=== PATIENT | male | born 1985 | race Caucasian/White ===

== ENCOUNTER 2019-08-19 18:50 | Observation (INO) ==
[2019-08-19] MEDS ORDERED: SOLU-MEDROL IV ONE (19:24)
--- NOTE | 2019-08-19 19:39 | Diag Imaging Result Doc PS360 ---
EXAM: CHEST-2 VIEWS 08/19/2019 HISTORY: cough TECHNIQUE: PA and lateral chest COMMENT: There are no previous studies. There is no evidence of acute cardiac or pulmonary disease. IMPRESSION: No acute disease. Electronically signed by Manpreet Cuellar 08/19/2019 7:35 PM
[2019-08-19 20:26] LABS: BASO# 0.02 X1000 (0.0-0.2); BASO% 0.3 % (0.0-0.8); HEMATOCRIT 43.1 % (42.0-52.0); HEMOGLOBIN 14.3 g/dL (14.0-18.0); LYMPH# 0.45 X1000 (1.2-3.4); LYMPH% 6.1 % (20.5-51.1); MCH 29.4 PG (27-31); MCHC 33.2 g/dL (33-37); MCV 88.7 FL (81-99); MONO# 0.55 X1000 (0.11-0.59); MONO% 7.5 % (1.7-9.3); MPV 10.8 FL (7.4-10.4); NEUT# 6.34 X1000 (1.4-6.5); NEUT% 86.1 % (42.2-75.2); PLT 164 X1000 (130-400); RBC 4.86 XMIL (4.7-6.1); RDW 12.9 % (11.5-14.5); WBC 7.36 X1000 (4.8-10.8)
[2019-08-19 20:38] LABS: INR 0.91; PROTIME 12.3 Seconds (11.0-16.0); PTT 23.4 Seconds (22.3-41.8)
[2019-08-19 20:43] LABS: AGAP 12; ALB/GLOB RATIO 1.7; ALBUMIN 4.5 g/dL (3.5-5.0); ALKALINE PHOSPHATASE 74 U/L (32-122); BUN 13 mg/dL (8-22); CALCIUM 9.6 mg/dL (8.8-10.2); CHLORIDE 98 mmol/L (98-107); COSMO 272; CREATININE 1.2 mg/dL (0.7-1.2); ESTIMATED GFR > 60; GLUCOSE 92 mg/dL (70-104); GOT 19 U/L (10-34); GPT 17 U/L (10-44); POTASSIUM 3.5 mmol/L (3.5-5.1); SODIUM 136 mmol/L (136-145); TCO2 26 mmol/L (25-35); TOTAL BILIRUBIN 0.37 mg/dL (0.20-1.00); TOTAL PROTEIN 7.1 g/dL (6.3-8.3)
--- NOTE | 2019-08-19 20:59 | Diag Imaging Result Doc PS360 ---
EXAM: CT HEAD W/O CONTRAST 08/19/2019 HISTORY: stroke like symptoms TECHNIQUE: This exam was performed using automated exposure control, adjustment of mA or kV according to patient size, and/or use of iterative reconstruction technique. COMMENT: There are no previous studies available for comparison. There is no evidence of mass effect, bleed, or abnormal extra-axial fluid collection. The calvarium is intact. The visualized paranasal sinuses are clear. IMPRESSION: No evidence of acute intracranial disease. Electronically signed by Manpreet Cuellar 08/19/2019 8:56 PM
[2019-08-19] MEDS ORDERED: TORADOL IV ONE (21:08)
[2019-08-19] MEDS ORDERED: NS 1,000 ML IV ONE (21:29)
--- NOTE | 2019-08-19 23:32 | PROVIDER DOCUMENTATION ---
This chart was entered by Emiliana Beckman Scribe, acting as scribe for Hermelindo Ocampo MD. HPI-Syncope/Dizziness - General Stated Complaint: SYNCOPE Time Seen by Provider: 08/19/19 19:13 Source: patient, family, EMS Allergies/Adverse Reactions: Patient Allergies Allergy/AdvReac Type Severity Reaction Status Date / Time Penicillins Allergy HIVES Verified 08/19/19 19:45 Home Medications: Home Medication List Medication Instructions Recorded Confirmed Last Taken Type Benzonatate [Tessalon] 100 mg PO TID 08/19/19 08/19/19 Unknown History Cefdinir 300 mg PO DAILY 08/19/19 08/19/19 Unknown History Doxycycline [Vibramycin] 100 mg PO DAILY 08/19/19 08/19/19 Unknown History - History of Present Illness-Syncope/Dizzy Nature of Presenting Problem: PT IS A 34 YOWM C/O SATURDAY PRODUCTIVE COUGH, WAS SEEN AT URGENT CARE YEST, GIVEN RX PENICILLIN AND BEGAN HAVING RASH ON NECK AND BEHIND EARS. PT WENT BACK TO URGENT CARE TODAY TO GET ON DIFF RX AND WAS HAVING VITALS TAKEN, BECAME NAUSEOUS AND HAD SYNCOPAL EPISODE FOR FEW MINS ACCORDING TO FAMILY. PT RASH HAS RESOLVED BUT HAS FACIAL AND NECK ERYTHEMA AND HAS HAD HOT AND COLD CHILLS. EMS RPTS PT HAD FEVER OF 102 AT [employer]. NO CP OR SOB. NONSMOKER, NO ALCOHOL OR DRUG USE. Prior Episodes: reports: single episode today Onset/Duration: reports: just prior to arrival Timing: reports: gone now Position/Activity at time of episode: reports: sitting Symptoms prior to episode: reports: nausea/vomiting Context: reports: lost consciousness Loss of Consciousness: prolonged (minutes) Location of injury. (If syncope resulted in an injury.): reports: none Current Symptoms: reports: none/feels normal Recently Seen Here or By Another Healthcare Provider: Yes ([facility] AND [employer] [facility] ) Review of Systems - Adult - REVIEW OF SYSTEMS - ADULT Constitutional: reports: see HPI, chills, fever. denies: fatique, night sweats Eyes: reports: no symptoms reported Ears, Nose, Mouth & Throat: reports: no symptoms reported Cardiovascular: reports: no symptoms reported. denies: chest pain Respiratory: reports: see HPI, cough, excessive sputum production. denies: dyspnea on exertion, shortness of breath, wheezing Gastrointestinal: reports: see HPI, nausea. denies: abdominal pain, diarrhea, vomiting Genitourinary: reports: no symptoms reported Musculoskeletal: reports: no symptoms reported Integumentary: reports: see HPI, rash (HAS RESOLVED), other (FACIAL AND NECK ERYTHEMA). denies: hives, hair loss, itching Neurological: reports: see HPI, syncope. denies: dizziness/vertigo, headache/migraines, loss of balance Psychiatric: reports: no symptoms reported Endocrine: reports: see HPI, change in skin pigment (FACIAL AND NECK ERYTHEMA). denies: excessive sweating, increased thirst, polyuria Hematologic/Lymphatic: reports: no symptoms reported Allergic/Immunologic: reports: no symptoms reported All Other Systems: Reviewed and Negative Past History - Adult - PAST MEDICAL HISTORY-ADULT Review of Records: reports: Nursing Assessment Review, Medications Reviewed, Social history reviewed & non-contributory. Major Childhood Illnesses: reports: denies history Cardiovascular: reports: denies history Respiratory: reports: denies history Gastrointestinal: reports: denies history Obstetrical/Gynecological: reports: denies history Genitourinary: reports: denies history Musculoskeletal: reports: denies history Neurological: reports: denies history Endocrine/Immune: reports: denies history Other Conditions: reports: denies history - PRIOR SURGERIES/PROCEDURES Surgical/Procedure History: reports: none - IMMUNIZATION STATUS Childhood Immunizations: See Nurse Assessment Flu Vaccine: See Nurse Assessment - FAMILY HISTORY Family History: reviewed, not pertinent - SOCIAL HISTORY Smoking: non-smoker Substance Use: none/never Physical Exam-General - PHYSICAL EXAM-ADULT Initial Vital Signs Reviewed: Yes - CONSTITUTIONAL General Appearance: appears well, alert, no apparent distress. negative: lethargic, slow to respond, obtunded - EYES Eyes: PERRL/EOMI - HEAD, EARS, NOSE, MOUTH & THROAT HENMT: normocephalic/atraumatic, moist mucous membranes, normal ENT inspection - NECK Neck: non-tender, full range of motion, supple, normal inspection - RESPIRATORY Respiratory: chest non-tender, lungs clear, normal breath sounds - CARDIOVASCULAR Cardiovascular: normal peripheral pulses, no edema, no gallop, no JVD, no murmur , tachycardia. negative: regular rate, rhythm, extra beats, friction rub, irregularly irregular - GASTROINTESTINAL (ABDOMEN) Abdominal Exam: normal bowel sounds, non tender, soft - MUSCULOSKELETAL Back Exam: normal inspection Extremity: normal range of motion, non-tender, normal inspection, normal capillary refill, pelvis stable. negative: slow capillary refill, swelling, tenderness Peripheral Pulses: radial (L): 2+ - SKIN Integumentary: normal turgor, warm/dry, erythema (OF FACE AND NECK). negative: normal color, abrasion(s), rash, swelling, tenderness - NEUROLOGIC Neurologic: claims processor II-XII nml as tested, grossly normal, no motor/sensory deficits, other (NVI, [employer] BILAT HANDS) - PSYCHIATRIC Psych/Mental Status: normal mood/affect, normal thought content, normal thought process, oriented x 3 Progress - PLAN OF CARE/RESULTS Progress/Plan/Lab Results: Vital Signs - 8 hr 08/19/19 19:08 08/19/19 19:10 08/19/19 19:11 Temperature 102.6 F H Pulse Rate 125 H Respiratory Rate 19 Blood Pressure 109/80 109/80 O2 Sat by Pulse Oximetry 99 99 100 08/19/19 19:15 08/19/19 19:56 08/19/19 20:00 Temperature Pulse Rate Respiratory Rate Blood Pressure O2 Sat by Pulse Oximetry 100 100 100 08/19/19 21:40 Temperature Pulse Rate Respiratory Rate Blood Pressure O2 Sat by Pulse Oximetry 100 Laboratory Results - last 24 hr 08/19/19 08/19/19 08/19/19 20:04 20:04 20:04 WBC 7.36 RBC 4.86 Hgb 14.3 Hct 43.1 MCV 88.7 MCH 29.4 MCHC 33.2 RDW Std Deviation 12.9 Plt Count 164 MPV 10.8 H Immature Gran % (Auto) 0.0 Neut % (Auto) 86.1 H Lymph % (Auto) 6.1 L Wharton % (Auto) 7.5 Eos % (Auto) 0.0 Baso % (Auto) 0.3 Immature Gran # (Auto) 0.00 Neut # (Auto) 6.34 Lymph # (Auto) 0.45 L Wharton # (Auto) 0.55 Eos # (Auto) 0.00 Baso # (Auto) 0.02 PT 12.3 INR 0.91 PTT (Actin FS) 23.4 Sodium 136 Potassium 3.5 Chloride 98 Carbon Dioxide 26 Anion Gap 12 BUN 13 Creatinine 1.2 Estimated GFR/1.73 m2 > 60 BUN/Creatinine Ratio 11 Glucose 92 POC Glucose Calculated Osmolality 272 Calcium 9.6 Magnesium Total Bilirubin 0.37 AST 19 ALT 17 Alkaline Phosphatase 74 Creatine Kinase Troponin T High Sens Total Protein 7.1 Albumin 4.5 Globulin 2.6 Albumin/Globulin Ratio 1.7 Plasma Lactate 08/19/19 08/19/19 08/19/19 20:04 20:04 20:04 WBC RBC Hgb Hct MCV MCH MCHC RDW Std Deviation Plt Count MPV Immature Gran % (Auto) Neut % (Auto) Lymph % (Auto) Wharton % (Auto) Eos % (Auto) Baso % (Auto) Immature Gran # (Auto) Neut # (Auto) Lymph # (Auto) Wharton # (Auto) Eos # (Auto) Baso # (Auto) PT INR PTT (Actin FS) Sodium Potassium Chloride Carbon Dioxide Anion Gap BUN Creatinine Estimated GFR/1.73 m2 BUN/Creatinine Ratio Glucose POC Glucose Calculated Osmolality Calcium Magnesium Total Bilirubin AST ALT Alkaline Phosphatase Creatine Kinase 104 Troponin T High Sens < 6 Total Protein Albumin Globulin Albumin/Globulin Ratio Plasma Lactate 1.7 08/19/19 08/19/19 20:04 20:26 WBC RBC Hgb Hct MCV MCH MCHC RDW Std Deviation Plt Count MPV Immature Gran % (Auto) Neut % (Auto) Lymph % (Auto) Wharton % (Auto) Eos % (Auto) Baso % (Auto) Immature Gran # (Auto) Neut # (Auto) Lymph # (Auto) Wharton # (Auto) Eos # (Auto) Baso # (Auto) PT INR PTT (Actin FS) Sodium Potassium Chloride Carbon Dioxide Anion Gap BUN Creatinine Estimated GFR/1.73 m2 BUN/Creatinine Ratio Glucose POC Glucose 85 Calculated Osmolality Calcium Magnesium 1.9 Total Bilirubin AST ALT Alkaline Phosphatase Creatine Kinase Troponin T High Sens Total Protein Albumin Globulin Albumin/Globulin Ratio Plasma Lactate Orders Category Date Time Status Cardiac Monitoring DIRECTED Care 08/19/19 19:19 Active Cardiac Monitoring DIRECTED Care 08/19/19 20:19 Active IV Insertion ORDERED Care 08/19/19 20:19 Completed Notify MD of + Sepsis Screen NOW Care 08/19/19 20:19 Active Notify Physician As Ordered Care 08/19/19 20:19 Active CHEST-2 VIEWS [RAD] Stat Exams 08/19/19 19:[address] HEAD W/O CONTRAST [CT] Stat Exams 08/19/19 19:19 Completed BLOOD CULTURE [BLDCUL] Stat Lab 08/19/19 20:12 Results CBC WITH ELECTRONIC DIFF [HEME] Stat Lab 08/19/19 20:04 Completed CK PROFILE [SP CHEM] Stat Lab 08/19/19 20:04 Completed COMPREHENSIVE METABOLIC PANEL [CHEM] Stat Lab 08/19/19 20:04 Completed LACTATE, PLASMA [CHEM] Lab 08/19/19 23:30 Uncollected LACTATE, PLASMA [CHEM] Lab 08/20/19 02:30 Uncollected LACTATE, PLASMA [CHEM] Q3H Lab 08/19/19 20:04 Completed MAGNESIUM [CHEM] Stat Lab 08/19/19 20:04 Completed PROTIME WITH INR [COAG] Stat Lab 08/19/19 20:04 Completed PTT [COAG] Stat Lab 08/19/19 20:04 Completed TROPONIN T HIGH SENSITIVITY Stat Lab 08/19/19 20:04 Completed URINALYSIS W/POSS RFLX CULT [URINALYSIS] Stat Lab 08/19/19 19:19 Uncollected URINE DRUG SCREEN Stat Lab 08/19/19 19:19 Uncollected 0.9% Sodium Chloride Inj [Ns] 1,000 ml Med 08/19/19 21:29 Discontinued IV 999 mls/hr Ketorolac [Toradol] Med 08/19/19 21:08 Discontinued 30 mg IV NOW ONE Methylprednisolone Sod Succ [Solu-Medrol] Med 08/19/19 19:24 Discontinued 125 mg IV NOW ONE Oxygen Device Stat Oth 08/19/19 20:19 Active EKG [EKG] Stat Ther 08/19/19 19:19 Ordered Result Diagrams: 08/19/19 20:04 08/19/19 20:04 - REASSESSMENT Reassessment #1 Time Reassessed: 19:41 Status: other (RN STS PT HAS EQUAL BILAT DECORATOR STORE BUT HAS TROUBLE WRITING AND FORMING LETTERS.) - EKG 1 Time of EKG reading by physician:: 20:20 EKG Read and Signed by:: Hermelindo Ocampo EKG Interpretation (*Must complete 3 of following elements*): Normal Rate: 118 Rhythm: ST Center: normal QRS: normal AR Interval: normal ST Wave: normal - XRAY 1 XRAY Study: Chest Impression: See EMR Report ( EXAM: CHEST-2 VIEWS 08/19/2019 HISTORY: cough TECHNIQUE: PA and lateral chest COMMENT: There are no previous studies. There is no evidence of acute cardiac or pulmonary disease. IMPRESSION: No acute disease. Electronically signed by Manpreet Cuellar 08/19/2019 7:35 PM) - CT/MRI 1 CT Study: Head Impression: See EMR Report (neg for acute intracranial bleed) - CONSULTS/PCP/HOSPITALIST Notification #1 *Consult/PCP/Hospitalist*: Dr Joyce Time Discussed: 23:30 Consult Disposition: Admit (accepts admission) Departure - Departure Date of Disposition Decision: 08/19/19 Time of Disposition Decision: 23:28 DIAGNOSIS: Syncope Qualifiers: Syncope type: unspecified Qualified Code(s): R55 - Syncope and collapse Allergic reaction caused by a drug Qualifiers: Encounter type: initial encounter Qualified Code(s): T78.40XA - Allergy, unspecified, initial encounter Disposition: ADMITTED INPATIENT 09 Certified Medical Emergency: Emergent Condition: Stable Referrals and Follow-Ups: None,PCP [Primary Care Provider] - - Critical Care Note This patient required my direct & personal management of CC.: No Attestation - Physician/ HARRIS Attestation Patient care was provided by Advanced Practice Provider:: No The physician spent face to face time with patient:: Yes Advanced Practice Provider documentation review:: Supervising physician onsite and consulted in the evaluation and care of this patient. The physician did have a face to face encounter with the patient. This chart was documented by the indicated scribe, (Emiliana Beckman Scribe) and accurately reflects the services I performed and decisions made by me, Hermelindo Ocampo MD, as attested by the provider's signature.
[2019-08-20 00:28] LABS: BILIRUBIN URINE NEGATIVE (NEGATIVE); BLOOD URINE NEGATIVE (NEGATIVE); COLOR YELLOW; GLUCOSE URINE NEGATIVE (NEGATIVE); KETONE URINE TRACE mg/dL (NEGATIVE); LEUKOCYTES URINE NEGATIVE (NEGATIVE); NITRITE URINE NEGATIVE (NEGATIVE); PROTEIN URINE TRACE mg/dL (NEGATIVE); SP GRAVITY URINE 1.034; TURBIDITY URINE CLEAR (CLEAR); UR EPITHELIAL CELLS <10 /HPF (<10); URINE BACTERIA NEGATIVE /HPF; URINE RBC <10 /HPF (<10); URINE SOURCE CLEAN CATCH; URINE WBC <10 /HPF (<10); UROBILINOGEN URINE NORMAL (NORMAL)
[2019-08-20 01:00] LABS: UR AMPHETAMINES QUAL NONE DETECTED (NONE DETECT); UR BARBITUATES QUAL NONE DETECTED (NONE DETECT); UR BENZODIAZEPIN QUAL NONE DETECTED (NONE DETECT); UR CANNABINOIDS QUAL NONE DETECTED (NONE DETECT); UR COCAINE QUAL NONE DETECTED (NONE DETECT); UR METHADONE QUAL NONE DETECTED (NONE DETECT); UR OPIATES QUAL NONE DETECTED (NONE DETECT); UR OXYCODONE QUAL NONE DETECTED (NONE DETECT); UR PCP QUAL NONE DETECTED (NONE DETECT)
[2019-08-20] MEDS ORDERED: BENADRYL PO PRN (03:45)
[2019-08-20] MEDS ORDERED: NS 1,000 ML IV SCH (03:45)
[2019-08-20] MEDS ORDERED: TYLENOL PO PRN (03:45)
[2019-08-20] MEDS ORDERED: ZOFRAN IV PRN (03:45)
[2019-08-20 06:35] LABS: HEMATOCRIT 39.4 % (42.0-52.0); LYMPH# 0.28 X1000 (1.2-3.4); LYMPH% 4.8 % (20.5-51.1); MCH 29.7 PG (27-31); MCV 90.2 FL (81-99); MONO% 1.7 % (1.7-9.3); MPV 11.3 FL (7.4-10.4); NEUT# 5.41 X1000 (1.4-6.5); NEUT% 93.5 % (42.2-75.2); PLT 154 X1000 (130-400); RBC 4.37 XMIL (4.7-6.1); RDW 12.9 % (11.5-14.5); WBC 5.79 X1000 (4.8-10.8)
--- NOTE | 2019-08-20 06:58 | HISTORY AND PHYSICAL ---
PRIMARY CARE PROVIDER: None. CHIEF COMPLAINT: Passed out. HISTORY OF PRESENT ILLNESS: Mr. Espinoza is a 34-year-old gentleman, who went to the Urgent Care on Saturday. He reports he was diagnosed with something bacterial and was sent home on p.o. antibiotics. Unsure if it was cefdinir or doxycycline that he received first. He reports he took 3 doses of that p.o. antibiotic. He was also given a steroid shot and Tessalon Perles at the Urgent Care. He went to work this a.m., was having fever, chills, diaphoresis. His coworkers told him that the back of his neck and face were bright red, so he took a couple of Benadryl, went back to the Urgent Care. They switched his antibiotic; unsure if it was just cefdinir or doxycycline. He went back home, continued to have fever, chills, started with excessive diaphoresis, so he decided to take a shower. He vomited twice in the shower. His family brought him back to the Urgent Care where I believe he passed out in the triage room in a sitting position. He did not fall off a chair, he did not hit his head. There was no loss of bowel or bladder. There was no preceding chest pain, shortness of breath or heart palpitations. EMS was called and he was brought to the ED where he was found to have a fever of 102. Head CT and chest x-ray did not show anything acute. He was given a liter bolus of fluid. We will continue with aggressive IV hydration. He is still pretty diaphoretic, tachycardic with a weak pulse. He now complains of a frontal headache and some bilateral earache. He does have a family history of males deceasing in their 50s from KS's, so we will do 1 more set of troponins and check an EKG in the a.m. Hopefully, this was just a vasovagal syndrome with the heat from the shower and his fever. PAST MEDICAL HISTORY: None. SOCIAL HISTORY: He is . 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 No alcohol, tobacco, or illicit drug use. FAMILY HISTORY: Father either during open heart surgery or right heart catheterization at the age of 56 or 57. Grandfather of an KS in his 50s as well. REVIEW OF SYSTEMS: Twelve-point review of systems completely negative, except for those mentioned in HPI. Positive for fever, chills, diaphoresis, reported cough that began last Saturday. He started running fever today, but no shortness of breath. No chest pain. No palpitations. No diarrhea. No bleeding from any orifice. No problems with urination. He did report some redness to the back of his neck that is still present. Did not really appreciate any on his face. Nausea and vomiting x2. PHYSICAL EXAM: VITAL SIGNS: Temperature is 102.6 degrees, heart rate 125, respirations 19, blood pressure 109/80, O2 is 99% on room air. GENERAL: Mr. Espinoza is a 34-year-old gentleman, who is sitting up in the bed in no acute distress. HEENT: Atraumatic, normocephalic. PERRL. NECK: Supple. Trachea midline. CARDIOVASCULAR: S1, S2 appreciated. No murmurs, gallops, rubs noted. RESPIRATORY: Lung sounds clear bilaterally. GI: Soft, nontender, nondistended. Positive bowel sounds 4 quadrants. EXTREMITIES: Lower extremities negative for edema. SKIN: Diaphoretic. Although the back of his neck continues to be red, it does not appear to be a rash per se or any irritation; almost looks like a sunburn, but he did state he was working outside, but he had his hoodie up. NEUROLOGIC: No focal deficits noted. DIAGNOSTIC DATA: Chest x-ray: No acute disease. Head CT: No acute intracranial processes. EKG pending. LABORATORY DATA: White count 7, hemoglobin and hematocrit 14 and 43, platelet count is 164. Chemistry: Sodium 136, potassium 3.5, BUN 13, creatinine 1.2, magnesium is 1.9, blood glucose was 92. First set of troponins was negative. Plasma lactate was 1.7. ASSESSMENT AND PLAN: 1. Syncope, possibly vasovagal response from having fever, getting in a hot shower, as well as his nausea and vomiting. Given his strong family history of early myocardial infarction with deaths in the family in the 50s, we will go ahead and rule him out with another set of troponins, and check an echocardiogram in the morning and continue with aggressive intravenous hydration. 2. Febrile illness. Probable Flu. We do not currently have a source of infection. He has been on 2 separate antibiotics, 1 which appeared to cause some allergic reaction. He does have an allergy to penicillin that causes hives. He does not know which medication he got first, whether it was the cefdinir or the doxycycline. We are going to go ahead and swab him for the flu again with his high fever. We did draw blood cultures; currently awaiting urine culture. He does not have a white count and his plasma lactate is currently normal, but we will continue to trend those. Start Tamiflu if positive. 3. Further recommendation to follow physician evaluation, laboratory and diagnostic data. Dictated by KATY Gomez for Marge Joyce MD cc: Marge Joyce MD Independent exam and assessment done by me. Initial assessment was that of syncope secondary to volume loss. 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 [facility]
[2019-08-20 07:18] LABS: AGAP 11; ALB/GLOB RATIO 1.4; ALBUMIN 3.8 g/dL (3.5-5.0); ALKALINE PHOSPHATASE 64 U/L (32-122); BUN 15 mg/dL (8-22); CALCIUM 8.9 mg/dL (8.8-10.2); CHLORIDE 105 mmol/L (98-107); COSMO 283; ESTIMATED GFR > 60; GLUCOSE 151 mg/dL (70-104); GOT 16 U/L (10-34); GPT 14 U/L (10-44); MAGNESIUM 2.1 mg/dL (1.5-2.7); POTASSIUM 4.2 mmol/L (3.5-5.1); SODIUM 140 mmol/L (136-145); TCO2 24 mmol/L (25-35); TOTAL BILIRUBIN 0.45 mg/dL (0.20-1.00); TOTAL PROTEIN 6.5 g/dL (6.3-8.3)
--- NOTE | 2019-08-20 07:25 | EKG Report ---
Test Performed on : 08/19/2019 8:20:53 PM Test Reason : syncope Blood Pressure : / mmHG Vent. Rate : 118 BPM Atrial Rate : 118 BPM P-R Int : 140 ms QRS Dur : 082 ms QT Int : 284 ms P-R-T Axes : 035 037 027 degrees QTc Int : 398 ms Sinus tachycardia. Otherwise normal ECG No previous ECGs available Unconfirmed Result
--- NOTE | 2019-08-20 08:08 | Diag Imaging Result Doc PS360 ---
EXAM: CHEST-2 VIEWS 08/20/2019 HISTORY: R/O PNA TECHNIQUE: PA and lateral chest COMMENT: There is no evidence of acute cardiac or pulmonary disease. Compared to 08/19/2019 there has been no significant change. IMPRESSION: Normal chest. Electronically signed by Manpreet Cuellar 08/20/2019 8:06 AM
[2019-08-20 08:49] VITALS: BP 94/56
[2019-08-20] MEDS ORDERED: TAMIFLU PO SCH (09:00)
[2019-08-20] MEDS ORDERED: TESSALON PO SCH (09:00)
== END 2019-08-20 12:06 | disposition home or self-care (01) ==
LOC: ED 18:50 → 1N 18:50 → SUATTDRO 08-20 02:55
PROVIDERS: ATTEND Internal Medicine